=== PATIENT | male | born 1980 ===

== ENCOUNTER 2017-01-03 12:58 | Emergency (ER) | payer SELFPAY ==
[2017-01-03] MEDS ORDERED: Albuterol-Ipratrop 3 mg / 0.5 (3 ml) UD INH STA ×3 (13:27→16:08)
--- NOTE | 2017-01-03 13:51 | ED PDOC ---
HPI: SOB/CHF/COPD Time Seen by Provider: 01/03/17 13:21 Chief Complaint (Nursing): Shortness Of Breath Chief Complaint (Provider): Symptoms of Asthma Exacerbation History Per: Patient History/Exam Limitations: no limitations Onset/Duration Of Symptoms: Days (since yesterday) Current Symptoms Are (Timing): Still Present Initiating Event: Upper Respiratory Illness Context: Asthma exacerbation Current Respiratory Medications: Albuterol (provides minimal relief) Severity: Moderate Associated Symptoms: Fever (tactile, yesterday), Other (wheeze, cough) Additional Complaint(s): Cristian Harris is a 36 year old male, with a past medical history of mild, persistent asthma, who presents to the emergency department today with symptoms of asthma exacerbation, that the patient has been experiencing since yesterday. Associated wheeze, cough, and shortness of breath are currently present. Patient reports that he had a tactile fever yesterday, which has since then improved. He is using Albuterol at home; however, it has only provided mild relief, prompting his visit to the ED. Denies prior hospitalizations for asthma. PMD: Aida Barrientos Past Medical History Reviewed: Historical Data, Nursing Documentation, Vital Signs Vital Signs: Last Vital Signs Temp 98.7 F 01/03/17 13:04 Pulse 130 H 01/03/17 13:04 Resp 22 01/03/17 13:04 BP 114/71 01/03/17 13:04 Pulse Ox 94 L 01/03/17 14:02 - Medical History PMH: Asthma - Surgical History Surgical History: No Surg Hx - Family History Family History: States: No Known Family Hx - Social History Current smoker - smoking cessation education provided: No Ex-Smoker (has not smoked in the last 12 months): No - Allergies Allergies/Adverse Reactions: Allergies Allergy/AdvReac Type Severity Reaction Status Date / Time No Known Allergies Allergy Verified 01/03/17 13:04 Review of Systems ROS Statement: Except As Marked, All Systems Reviewed And Found Negative Constitutional: Positive for: Fever (tactile, yesterday) Respiratory: Positive for: Cough, Shortness of Breath, Wheezing Physical Exam - Reviewed Nursing Documentation Reviewed: Yes Vital Signs Reviewed: Yes - Physical Exam Appears: Positive for: Non-toxic, No Acute Distress Head Exam: Positive for: ATRAUMATIC, NORMOCEPHALIC Skin: Positive for: Normal Color, Warm, Dry Eye Exam: Positive for: Normal appearance, EOMI ENT: Positive for: Normal ENT Inspection. Negative for: Pharyngeal Erythema, Tonsillar Exudate, Tonsillar Swelling Neck: Positive for: Normal, Painless ROM Cardiovascular/Chest: Positive for: Regular Rate, Rhythm. Negative for: Murmur Respiratory: Positive for: Wheezing (b/l). Negative for: Normal Breath Sounds, Respiratory Distress Gastrointestinal/Abdominal: Positive for: Normal Exam, Soft. Negative for: Tenderness Back: Positive for: Normal Inspection. Negative for: L CVA Tenderness, R CVA Tenderness, Vertebral Tenderness Extremity: Positive for: Normal ROM. Negative for: Tenderness, Swelling (lower extremity edema) Neurologic/Psych: Positive for: Alert, Oriented - ECG ECG Rhythm: Positive for: Normal QRS, Sinus Tachycardia. Negative for: ST/T Changes Rate: 125 O2 Sat by Pulse Oximetry: 94 (RA) Pulse Ox Interpretation: Normal - Radiology X-Ray: Interpreted by Me, Viewed By Me, Read By Radiologist X-Ray Interpretation: No Acute Disease Medical Decision Making Medical Decision Makin:21 Initial Impression: Asthma exacerbation Initial Plan: * Chest X-Ray * EKG * Albuterol/Ipratropium 3 ml INH * predniSONE 60 mg PO * Peak Flow Pre/Post Respiratory Treatment * Influenza A/B * Reevaluation 13:42 EKG read at a rate of 125 w/ Sinus Tachycardia, No ST/T Changes, Normal QRS. 14:06 Chest X-Ray Results FINDINGS: LUNGS: No active pulmonary disease. PLEURA: No significant pleural effusion identified. No pneumothorax apparent. CARDIOVASCULAR: Normal. OSSEOUS STRUCTURES: No significant abnormalities. VISUALIZED UPPER ABDOMEN: Normal. OTHER FINDINGS: None. IMPRESSION: No active disease. Scribe Attestation: Documented by Real Romero, acting as a scribe for David Hayden III, MD. Provider Scribe Attestation: All medical record entries made by the Scribe were at my direction and personally dictated by me. I have reviewed the chart and agree that the record accurately reflects my personal performance of the history, physical exam, medical decision making, and the department course for this patient. I have also personally directed, reviewed, and agree with the discharge instructions and disposition.
--- NOTE | 2017-01-03 14:08 | RAD ---
HISTORY: SOB COMPARISON: No prior. TECHNIQUE: Chest PA and lateral FINDINGS: LUNGS: No active pulmonary disease. PLEURA: No significant pleural effusion identified. No pneumothorax apparent. CARDIOVASCULAR: Normal. OSSEOUS STRUCTURES: No significant abnormalities. VISUALIZED UPPER ABDOMEN: Normal. OTHER FINDINGS: None. IMPRESSION: No active disease.
[2017-01-03 15:27] LABS: BASO % 0.4 % (0.0-2.0); EOS # 0.2 K/uL (0.0-0.7); EOS % 2.3 % (0.0-4.0); HEMATOCRIT 39.5 % (35.0-51.0); LYMPH # 1.4 K/uL (1.0-4.3); LYMPH % 16.5 % (20.0-40.0); MEAN CELL VOLUME 81.2 fl (80.0-94.0); MEAN CORPUSCULAR HEMOGLOBIN 26.7 pg (27.0-31.0); MEAN CORPUSCULAR HGB CONC 32.8 g/dL (33.0-37.0); MEAN PLATELET VOLUME 8.1 fl (7.2-11.7); MONO # 0.7 K/uL (0.0-0.8); MONO % 8.3 % (0.0-10.0); NEUT # 6.1 K/uL (1.8-7.0); NEUT % 72.5 % (50.0-75.0); RED CELL DISTRIBUTION WIDTH 14.1 % (11.5-14.5); WHITE BLOOD COUNT 8.4 K/uL (4.8-10.8)
[2017-01-03 15:41] LABS: ALKALINE PHOSPHATASE 77 U/L (38-126); ALT/SGPT 32 U/L (21-72); AST/SGOT 22 U/L (17-59); BILIRUBIN,TOTAL 0.2 mg/dl (0.2-1.3); BLOOD UREA NITROGEN 12 mg/dl (9-20); CALCIUM 8.9 mg/dL (8.4-10.2); CARBON DIOXIDE 26 mmol/L (22-30); CHLORIDE 105 mmol/L (98-107); GFR AFRICAN-AMERICAN > 60; GLUCOSE,RANDOM 133 mg/dL (75-110); POTASSIUM 3.9 MMOL/L (3.6-5.0); SODIUM 141 mmol/l (132-148); TOTAL PROTEIN 7.4 G/DL (6.3-8.2)
[2017-01-03] MEDS ORDERED: Magnesium Sulfate 2 gm/50 ml 2 GM/50 ML BAG IVPB ONE (16:09)
[2017-01-03] MEDS ORDERED: Albuterol-Ipratrop 3 mg / 0.5 (3 ml) UD ONE (16:29)
--- NOTE | 2017-01-03 16:32 | ED PDOC ---
- Laboratory Results Result Diagrams: 01/03/17 15:21 01/03/17 15:21 - ECG O2 Sat by Pulse Oximetry: 94 (RA) Pulse Ox Interpretation: Normal Medical Decision Making Medical Decision Making: Time: 1500 --Patient is pending reassessment of medications, reevaluation, and final ER disposition. 5p Reeval pt feeling a lot better, maintiaining good O2 sat and no wheeze on reeval. Ate lunch and eager to go home. Scribe Attestation: Documented by Juanis Rossi, acting as a scribe for Skye Gupta MD. Provider Scribe Attestation: All medical record entries made by the Scribe were at my direction and personally dictated by me. I have reviewed the chart and agree that the record accurately reflects my personal performance of the history, physical exam, medical decision making, and the department course for this patient. I have also personally directed, reviewed, and agree with the discharge instructions and disposition. Disposition - Clinical Impression Clinical Impression: Asthma exacerbation - POA Present On Arrival: None - Disposition Referrals: Aida Barrientos MD [Medical Doctor] - 01/04/17 Disposition: Routine/Home Disposition Time: 17:00 Condition: IMPROVED Prescriptions: Albuterol 0.083% [Albuterol Sulfate 3 Ml] 3 ml IH Q4H PRN #50 neb PRN Reason: ASTHMA Prednisone 50 mg PO DAILY #4 tablet Instructions: Asthma (ED)
[2017-01-03 17:54] VITALS: BP 122/67; PULSE 102; RESP 19; TEMP 98.2; O2SAT 97
--- NOTE | 2017-01-04 08:55 | CARD ---
APPROVED REPORT EKG Measurement Heart [id number] <Conclusion> Sinus tachycardia Otherwise normal ECG
== END 2017-01-03 17:55 | disposition home or self-care (01) ==
LOC: H.ER 12:58
DX: J45.901 Unspecified asthma with (acute) exacerbation (principal); R06.02 Shortness of breath

== ENCOUNTER 2017-02-01 11:13 | Inpatient (IN) | payer BC ==
[2017-02-01] MEDS ORDERED: Albuterol-Ipratrop 3 mg / 0.5 (3 ml) UD INH STA ×3 (12:23→12:24)
[2017-02-01] MEDS ORDERED: Albuterol-Ipratrop 3 mg / 0.5 (3 ml) UD ONE (12:24)
[2017-02-01] MEDS ORDERED: Sodium Chloride 0.9% 1,000 ML IV STA (14:23)
--- NOTE | 2017-02-01 14:27 | ED PDOC ---
HPI: Asthma Time Seen by Provider: 02/01/17 14:24 Chief Complaint (Nursing): Respiratory Distress Chief Complaint (Provider): asthma History Per: Patient History/Exam Limitations: no limitations Associated Symptoms: denies: Dyspnea, Cough, Sputum Production, Hemoptysis, Fever, Hives, Itching, Chest Pain, URI Additional Complaint(s): 36yo M in ED for eval for difficulty with breathing x1 days states she has been seen in Ed previously for asthma attack, states he has been taking his albuterol but not effective. admits to chest tightness and back pain. denies recent travel, recent surgery recent no blood disorders. - Asthma History Rescue Medications: Short-acting Agonists Control Medications: None Past Medical History Reviewed: Historical Data, Nursing Documentation, Vital Signs Vital Signs: Last Vital Signs Temp 98.7 F 02/01/17 11:19 Pulse 132 H 02/01/17 11:19 Resp 14 02/01/17 11:31 BP Pulse Ox 96 02/01/17 13:14 - Medical History PMH: Asthma - Family History Family History: States: No Known Family Hx - Home Medications Home Medications: Ambulatory Orders Medication Instructions Recorded Albuterol 0.083% [Albuterol 3 ml IH Q4H PRN #50 neb 01/03/17 Sulfate 3 Ml] - Allergies Allergies/Adverse Reactions: Allergies Allergy/AdvReac Type Severity Reaction Status Date / Time No Known Allergies Allergy Verified 02/01/17 15:32 Review of Systems ROS Statement: Except As Marked, All Systems Reviewed And Found Negative Cardiovascular: Negative for: Chest Pain, Palpitations Respiratory: Positive for: Shortness of Breath, SOB with Exertion, Wheezing Physical Exam - Reviewed Nursing Documentation Reviewed: Yes Vital Signs Reviewed: Yes - Physical Exam Appears: Positive for: Non-toxic, No Acute Distress, Uncomfortable Head Exam: Positive for: ATRAUMATIC, NORMAL INSPECTION, NORMOCEPHALIC Skin: Positive for: Normal Color, Warm, DRY Cardiovascular/Chest: Positive for: Regular Rate, Rhythm, Chest Non Tender, Tachycardia. Negative for: Bradycardia Respiratory: Positive for: CNT, Normal Breath Sounds Back: Positive for: Normal Inspection Extremity: Positive for: Normal ROM Neurologic/Psych: Positive for: Alert, Oriented - Laboratory Results Result Diagrams: 02/01/17 14:30 02/01/17 14:30 - ECG O2 Sat by Pulse Oximetry: 96 - Progress ED Course And Treament: Pt given duonebb x 3 however pt still is complaining of SOB-will need Chest xray , D-dimer, cbc/cmp/EKG, prednisone 60mg HR still elevated placed on 1 liter of NS. Medical Decision Making Medical Decision Making: Pt HR not improved > 120bpm, Pt still admits to difficulty with breathing, though able to speak in full sentences and no wheezing on PE. Pt admits to back pain made worse with breathing. EKG shows sinus tachycardia. Pt not improved after 60mg of PO prednisone will get Mag 2mg IV and NS. pt will need admission for asthma exacerbation under MD Sarina. Disposition - Clinical Impression Clinical Impression: Asthma exacerbation - Patient ED Disposition Is Patient to be Admitted: Yes - Disposition Disposition Time: 16:35 Condition: FAIR - Pt Status Changed To: Hospital Disposition Of: Observation - POA Present On Arrival: None
[2017-02-01 14:51] LABS: BASO % 0.3 % (0.0-2.0); EOS # 0.1 K/uL (0.0-0.7); EOS % 0.8 % (0.0-4.0); HEMATOCRIT 41.6 % (35.0-51.0); LYMPH # 0.8 K/uL (1.0-4.3); LYMPH % 6.3 % (20.0-40.0); MEAN CELL VOLUME 80.6 fl (80.0-94.0); MEAN CORPUSCULAR HEMOGLOBIN 26.6 pg (27.0-31.0); MEAN CORPUSCULAR HGB CONC 33.1 g/dL (33.0-37.0); MEAN PLATELET VOLUME 8.3 fl (7.2-11.7); MONO # 0.7 K/uL (0.0-0.8); MONO % 5.6 % (0.0-10.0); NEUT # 10.6 K/uL (1.8-7.0); PLATELET COUNT 238 K/uL (130-400); RED CELL DISTRIBUTION WIDTH 14.3 % (11.5-14.5); WHITE BLOOD COUNT 12.1 K/uL (4.8-10.8)
[2017-02-01 15:02] LABS: ALB/GLOB RATIO 1.2 (1.0-2.1); ALKALINE PHOSPHATASE 75 U/L (38-126); ALT/SGPT 33 U/L (21-72); AST/SGOT 26 U/L (17-59); BILIRUBIN,TOTAL 0.7 mg/dl (0.2-1.3); BLOOD UREA NITROGEN 14 mg/dl (9-20); CARBON DIOXIDE 25 mmol/L (22-30); CHLORIDE 102 mmol/L (98-107); GFR AFRICAN-AMERICAN > 60; GLUCOSE,RANDOM 102 mg/dL (75-110); POTASSIUM 3.8 MMOL/L (3.6-5.0); SODIUM 141 mmol/l (132-148); TOTAL PROTEIN 8.1 G/DL (6.3-8.2)
--- NOTE | 2017-02-01 15:11 | RAD ---
HISTORY: cough COMPARISON: Comparison chest 01/03/2017 TECHNIQUE: Chest PA and lateral FINDINGS: LUNGS: No active pulmonary disease. PLEURA: No significant pleural effusion identified. No pneumothorax apparent. CARDIOVASCULAR: Normal. OSSEOUS STRUCTURES: Very minor multilevel degenerative spondylosis of the thoracic spine VISUALIZED UPPER ABDOMEN: Normal. OTHER FINDINGS: None. IMPRESSION: No acute cardiopulmonary disease.
[2017-02-01 15:17] LABS: PARTIAL THROMBOPLASTIN TIME 29.6 Seconds (25.6-37.1)
[2017-02-01] MEDS ORDERED: Iodixanol 320 MG/ML 100 ML BOTTLE IV ONE (15:17)
[2017-02-01 15:30] LABS: NEUTROPHIL 86 % (42-75); REACTIVE LYMPHOCYTES 1 % (0-0); TOTAL CELLS COUNTED 100
--- NOTE | 2017-02-01 16:10 | CT ---
PROCEDURE: CT Chest with contrast (Pulmonary Angiogram) HISTORY: SOB with elevated HR COMPARISON: None available. TECHNIQUE: Axial computed tomography images were obtained of the chest in the pulmonary arterial phase of enhancement. Coronal and sagittal reformatted images were created and reviewed. Intravenous contrast dose: 95 cc Visipaque 320 contrast material. Radiation dose: Total exam DLP = mGy-cm. This CT exam was performed using one or more of the following dose reduction techniques: Automated exposure control, adjustment of the mA and/or kV according to patient size, and/or use of iterative reconstruction technique. FINDINGS: PULMONARY ARTERIES: The visualized pulmonary trunk, right and left main, lobar, segmental and proximal subsegmental branches of the pulmonary arteries appear well opacified with no definitive filling defects seen to suggest acute pulmonary embolus. Pulmonary trunk measures approximately 2.4 cm. AORTA: No evidence of thoracic aortic aneurysm. Ascending thoracic aorta measures approximately 2.586 cm and descending thoracic aorta measures approximately 2.13 cm. No significant atherosclerotic plaque. LUNGS: Unremarkable. No nodule, mass or pulmonary consolidation. PLEURAL SPACES: Unremarkable. No effusion or pneuomothorax. HEART: Heart size is within range of normal. No evidence of significant pericardial effusion. LYMPH NODES: Multiple small nonspecific mediastinal lymph nodes are present on. In addition, there are few small to medium size hilar lymph nodes present of the largest on the right side measuring approximately 17.2 mm and another measuring approximately 16.2 mm. Several left-sided hilar lymph nodes are present as well, the largest measuring approximately 13.8 mm and another measuring 12.6 mm. BONES, CHEST WALL: Small to medium-sized hiatal hernia with mild wall thickening of the distal esophagus that could be due to protrusion of gastric mucosa. Possibility of esophagitis or other intrinsic/ invasive wall lesion cannot be excluded. Clinical correlation recommended. Minimal multilevel degenerative spondylosis of the thoracic spine OTHER FINDINGS: Visualized upper abdominal structures appear grossly unremarkable. IMPRESSION: No evidence of acute central pulmonary embolus. Multiple small nonspecific mediastinal lymph nodes. There are several small to medium sized nonspecific bilateral hilar lymph nodes as above.
[2017-02-01] MEDS ORDERED: Albuterol 0.083% Inhal Sol (2.5 mg/3 mL) UD INH STA (16:27)
[2017-02-01] MEDS ORDERED: Magnesium Sulfate 2 gm/50 ml 2 GM/50 ML BAG IV STA (16:27)
[2017-02-01] MEDS ORDERED: Magnesium Sulfate 2 gm/50 ml 2 GM/50 ML BAG ONE (16:34)
[2017-02-01] MEDS ORDERED: Albuterol 0.083% Inhal Sol (2.5 mg/3 mL) UD ONE (16:34)
[2017-02-01] MEDS ORDERED: Albuterol 0.083% Inhal Sol (2.5 mg/3 mL) UD INH PRN (20:31)
[2017-02-01] MEDS ORDERED: methylPREDNISolone 125 MG in Sodium Chloride 0.9% 50 ML IVPB STA (20:32)
[2017-02-01] MEDS ORDERED: Sodium Chloride 3% for Inhalation 4 ML VIAL.NEB IH PRN (20:37)
[2017-02-01] MEDS ORDERED: Enoxaparin 100 mg Syringe SC STA (20:46)
[2017-02-01 21:31] LABS: BASO % 0.2 % (0.0-2.0); HEMATOCRIT 40.9 % (35.0-51.0); LYMPH % 7.6 % (20.0-40.0); MEAN CELL VOLUME 81.2 fl (80.0-94.0); MEAN CORPUSCULAR HEMOGLOBIN 26.2 pg (27.0-31.0); MEAN CORPUSCULAR HGB CONC 32.3 g/dL (33.0-37.0); MEAN PLATELET VOLUME 8.5 fl (7.2-11.7); MONO # 0.2 K/uL (0.0-0.8); MONO % 1.8 % (0.0-10.0); NEUT % 90.4 % (50.0-75.0); PLATELET COUNT 233 K/uL (130-400); RED CELL DISTRIBUTION WIDTH 13.9 % (11.5-14.5); WHITE BLOOD COUNT 13.3 K/uL (4.8-10.8)
[2017-02-01 21:33] LABS: ALB/GLOB RATIO 1.2 (1.0-2.1); ALKALINE PHOSPHATASE 68 U/L (38-126); ALT/SGPT 24 U/L (21-72); AST/SGOT 25 U/L (17-59); BILIRUBIN,TOTAL 0.6 mg/dl (0.2-1.3); BLOOD UREA NITROGEN 13 mg/dl (9-20); CALCIUM 9.2 mg/dL (8.4-10.2); CARBON DIOXIDE 23 mmol/L (22-30); CHLORIDE 105 mmol/L (98-107); CHOLESTEROL 200 mg/dL (0-199); GFR AFRICAN-AMERICAN > 60; GLUCOSE,RANDOM 138 mg/dL (75-110); POTASSIUM 4.4 MMOL/L (3.6-5.0); SODIUM 140 mmol/l (132-148); TOTAL PROTEIN 8.3 G/DL (6.3-8.2)
[2017-02-01 21:39] LABS: PARTIAL THROMBOPLASTIN TIME 30.8 Seconds (25.6-37.1)
[2017-02-01 22:59] LABS: NEUTROPHIL 88 % (42-75); TOTAL CELLS COUNTED 100
[2017-02-02] MEDS ORDERED: Albuterol 0.083% Inhal Sol (2.5 mg/3 mL) UD INH PRN (00:24)
[2017-02-02] MEDS: Albuterol 0.083% Inhal Sol (2.5 mg/3 mL) UD INH SCH ×4 (01:09→20:21)
[2017-02-02] MEDS: methylPREDNISolone 40 MG in Sodium Chloride 0.9% 50 ML IVPB SCH ×3 (03:26→21:04)
[2017-02-02] MEDS: Pantoprazole 40 mg EC Tab PO SCH (08:52)
[2017-02-02] MEDS ORDERED: Pneumococcal 23-Valent Vaccine IM ONE (09:00)
[2017-02-02 10:03] LABS: RBC URINE < 1 /hpf (0-3); URINE BILIRUBIN NEGATIVE (NEGATIVE); URINE BLOOD NEGATIVE (NEGATIVE); URINE COLOR YELLOW (YELLOW); URINE GLUCOSE (UA) >=500 mg/dL (Normal); URINE KETONE NEGATIVE (NEGATIVE); URINE LEUKOCYTE ESTERASE NEG Leu/uL (Negative); URINE PROTEIN NEGATIVE (NEGATIVE); URINE UROBILINOGEN 0.2-1.0 mg/dL (0.2-1.0)
[2017-02-02] MEDS: Fluticasone-Salmeterol 250-50mcg Diskus IH SCH ×2 (11:51→22:04)
--- NOTE | 2017-02-02 15:11 | CP.PCM.HP ---
History of Present Illness - History of Present Illness History of Present Illness: CC: Respiratory Distress. 36 y/o M, [facility] onset day [employer], Pt using Albuterol inhaler with mild relief. Pt came c/o of moderate SOB associated, chest tightness type associated to wheezing, occasional cough, non productive, non bloody. Worsening symptoms: SOB with exertion and at rest back pain. Aggravated factor: Increased symptoms with exercise. Pt denied: Fever, chills, n/v/d, abdominal pain, urinary symptoms, dizziness, CP, LOC, sick contact, recent travel. PMHx: Asthma, chronic back pain. CXR shows: No acute pulmonary disease. CT Chest shows: No PE, Multiple small lymph nodes. Present on Admission - Present on Admission Any Indicators Present on Admission: No Review of Systems - Constitutional Constitutional: Other (negative) - EENT Eyes: Other (negative) Ears: Other (negative) Nose/Mouth/Throat: Other (negative) - Cardiovascular Cardiovascular: Rapid Heart Rate - Respiratory Respiratory: Cough, Dyspnea, Dyspnea on Exertion, Wheezing - Gastrointestinal Gastrointestinal: Other (negative) - Genitourinary Genitourinary: Other (negative) - Musculoskeletal Musculoskeletal: Back Pain - Integumentary Integumentary: Other (negative) - Neurological Neurological: Other (negative) - Psychiatric Psychiatric: Other (negative) - Endocrine Endocrine: Other (negative) - Hematologic/Lymphatic Hematologic: Other (negative) Past Patient History - Infectious Disease Hx of Infectious Diseases: None - Past Medical History & Family History Past Medical History?: Yes Pertinent Family History: Unknown - Past Social History Smoking Status: Never Smoked Alcohol: None Drugs: Denies Home Situation {Lives}: Other - CARDIAC Hx Cardiac Disorders: No - PULMONARY Hx Respiratory Disorders: Yes Hx Asthma: Yes - NEUROLOGICAL Hx Neurological Disorder: No - HEENT Hx HEENT Problems: No - RENAL Hx Chronic Kidney Disease: No - ENDOCRINE/METABOLIC Hx Endocrine Disorders: No - HEMATOLOGICAL/ONCOLOGICAL Hx Blood Disorders: No - INTEGUMENTARY Hx Dermatological Problems: No - MUSCULOSKELETAL/RHEUMATOLOGICAL Hx Musculoskeletal Disorders: Yes Hx Back Pain: Yes (lower back pain for 3 years) Hx Falls: No - GASTROINTESTINAL Hx Gastrointestinal Disorders: No - GENITOURINARY/GYNECOLOGICAL Hx Genitourinary Disorders: No - PSYCHIATRIC Hx Psychophysiologic Disorder: No Hx Substance Use: Yes - SURGICAL HISTORY Hx Surgeries: No - ANESTHESIA Hx Anesthesia: Yes Hx Anesthesia Reactions: No Has any member of the family had a problem w/ anesthesia?: No Meds Allergies/Adverse Reactions: Allergies Allergy/AdvReac Type Severity Reaction Status Date / Time No Known Allergies Allergy Verified 02/01/17 15:32 Physical Exam - Constitutional Appears: No Acute Distress - Head Exam Head Exam: NORMAL INSPECTION, NORMOCEPHALIC - Eye Exam Eye Exam: PERRL - ENT Exam ENT Exam: Normal Oropharynx - Neck Exam Neck exam: Positive for: Normal Inspection - Respiratory Exam Respiratory Exam: Decreased Breath Sounds (at bases), Wheezes (b/l) - Cardiovascular Exam Cardiovascular Exam: REGULAR RHYTHM - GI/Abdominal Exam GI & Abdominal Exam: Normal Bowel Sounds, Soft - Extremities Exam Extremities exam: Positive for: normal inspection - Back Exam Back exam: NORMAL INSPECTION - Neurological Exam Neurological exam: Alert, Oriented x3 Additional comments: No motor sensory deficit. - Psychiatric Exam Psychiatric exam: Normal Mood - Skin Skin Exam: Normal Color, Warm Results - Vital Signs Recent Vital Signs: Last Vital Signs Temp 97.8 F 02/02/17 12:04 Pulse 98 H 02/02/17 12:04 Resp 18 02/02/17 12:04 BP 121/76 02/02/17 12:04 Pulse Ox 98 02/02/17 12:04 reviewed J.P. - Labs Result Diagrams: 02/01/17 21:11 02/01/17 21:11 Labs: reviewed J.P. - Imaging and Cardiology Chest x-ray Status: Report reviewed by me (Jim) CT scan - chest Status: Report reviewed by me (Jim) Assessment & Plan (1) Asthmatic bronchitis with exacerbation Status: Acute Priority: High - Assessment and Plan (Free Text) Plan: Taper Solumedrol, increase Advair to 500/50 , continue Albuterol , Singulair , Protonix rest of Tx. - Date & Time Date: 02/02/17 Time: 14:00
[2017-02-02 15:38] VITALS: RESP 20
--- NOTE | 2017-02-02 16:48 | CARD ---
APPROVED REPORT EKG Measurement Heart [id number] <Conclusion> Sinus tachycardia Otherwise normal ECG
[2017-02-03] MEDS: Albuterol 0.083% Inhal Sol (2.5 mg/3 mL) UD INH SCH ×3 (01:03→14:00)
[2017-02-03] MEDS: methylPREDNISolone 30 MG in Sodium Chloride 0.9% 50 ML IV SCH ×2 (04:22→09:19)
[2017-02-03 05:31] LABS: BLOOD UREA NITROGEN 19 mg/dl (9-20); CALCIUM 8.8 mg/dL (8.4-10.2); CARBON DIOXIDE 24 mmol/L (22-30); CHLORIDE 106 mmol/L (98-107); GFR AFRICAN-AMERICAN > 60; GLUCOSE,RANDOM 145 mg/dL (75-110); POTASSIUM 4.8 MMOL/L (3.6-5.0); SODIUM 141 mmol/l (132-148)
[2017-02-03 06:11] LABS: HEMATOCRIT 39.3 % (35.0-51.0); MEAN CORPUSCULAR HEMOGLOBIN 26.2 pg (27.0-31.0); MEAN CORPUSCULAR HGB CONC 32.3 g/dL (33.0-37.0); RED CELL DISTRIBUTION WIDTH 14.7 % (11.5-14.5)
[2017-02-03] MEDS: Pantoprazole 40 mg EC Tab PO SCH (08:50)
[2017-02-03] MEDS ORDERED: Fluticasone-Salmeterol 500-50mcg Diskus IH SCH (09:00)
--- NOTE | 2017-02-03 09:24 | PQF GENQUE ---
This form is a permanent part of the medical record 02/03/17 Dr Branch, Please clarify the type of asthma if known. Admitted with SOB, wheezing, chest tightness, back pain and cough. CXR no acute pulmonary disease. Treatment includes, nebulizers, solumedrol, singulair and advair diskus. Clarification of your documentation is requested to better reflect the severity of illness and intensity of treatment of your patient. PHYSICIAN'S RESPONSE Childhood Cough variant Exercise induced Late onset Mild intermittent Mild persistent Moderate persistent Severe persistent With bronchitis(please clarify acuity of bronchitis) With chronic lung disease (please document specific chronic lung disease) Other (please specify) Unable to determine Based on your medical judgment of the clinical indicators outlined above please clarify the following: [] Practitioner response [] If unable to determine, please check the box, sign and date. Present On Admission (POA) Indicator: [] Present at the time of admission [] Not present at the time of admission [] Clinically Undetermined In responding to this query, please exercise your independent professional judgment. The fact that a question is asked does not imply that any particular answer is desired or expected. Thank you for your clarification on this documentation. If you have any questions please call:extension [phone] Medical Records Dept. * Thank you, Tiffanie Brandon RN [facility]
[2017-02-03 12:33] VITALS: BP 110/60; PULSE 116; TEMP 97.8; O2SAT 94
--- NOTE | 2017-02-03 17:48 | CP.PCM.PN ---
Subjective - Date & Time of Evaluation Date of Evaluation: 02/03/17 Time of Evaluation: 11:35 - Subjective Subjective: F/U Bronchial Asthma Exacerbation. Pt awake, no A/D, no SOB, no chest congestion. Objective - Vital Signs/Intake and Output Vital Signs (last 24 hours): Temp Pulse Resp BP Pulse Ox 97.8 F 116 H 20 110/60 94 L 02/03/17 12:32 02/03/17 12:32 02/03/17 12:32 02/03/17 12:32 02/03/17 12:32 Intake and Output: 02/03/17 02/03/17 06:59 18:59 Intake Total 600 Balance 600 - Labs Labs: 02/03/17 04:10 02/03/17 04:10 PT 12.0 Seconds (9.8-13.1) 02/01/17 21:11 INR 1.1 (0.9-1.2) 02/01/17 21:11 APTT 30.8 Seconds (25.6-37.1) 02/01/17 21:11 - Constitutional Appears: No Acute Distress - Head Exam Head Exam: NORMAL INSPECTION - Eye Exam Eye Exam: PERRL - ENT Exam ENT Exam: Normal Oropharynx - Neck Exam Neck Exam: Normal Inspection - Respiratory Exam Respiratory Exam: NORMAL BREATHING PATTERN - Cardiovascular Exam Cardiovascular Exam: REGULAR RHYTHM - GI/Abdominal Exam GI & Abdominal Exam: Soft, Normal Bowel Sounds - Extremities Exam Extremities Exam: Normal Inspection - Back Exam Back Exam: NORMAL INSPECTION - Neurological Exam Neurological Exam: Alert, Oriented x3. absent: Motor Sensory Deficit - Psychiatric Exam Psychiatric exam: Normal Mood - Skin Skin Exam: Normal Color, Warm Assessment and Plan (1) Asthmatic bronchitis with exacerbation Status: Resolved - Assessment and Plan (Free Text) Plan: Pt improved and stable to be discharged, see instruction medication sheet, f/u with PMD in a week.
[2017-02-03] MEDS ORDERED: Enoxaparin 40 mg Syringe SC SCH (21:00)
== END 2017-02-03 14:20 | disposition home or self-care (01) | DRG 203 ==
LOC: H.ER 11:13 → H.EROBSV 16:32 → H.ERHOLD 16:45 → H.TEL 18:46 → OBSVTOIN 02-02 12:09 → H.TEL 02-02 12:14
PROVIDERS: ADMIT Internal Medicine Pulmonary Disease; ATTEND Internal Medicine Pulmonary Disease
PROC: 3E0234Z Introduction of Serum, Toxoid and Vaccine into Muscle, Percutaneous Approach (ICD-10-PCS; principal; 2017-02-02)
DX: J45.901 Unspecified asthma with (acute) exacerbation (principal); G89.29 Other chronic pain; M54.5 Low back pain; Z23 Encounter for immunization

== ENCOUNTER 2017-10-21 09:12 | Day surgery (SDC) | payer BC ==
[2017-10-21] MEDS ORDERED: Lactated Ringer's 1,000 ML IV ONE (09:53)
[2017-10-21] MEDS ORDERED: Propofol 10 mg/ml Inj (20 ML) ONE (11:14)
[2017-10-21 11:57] VITALS: TEMP 97.2
[2017-10-21 11:58] VITALS: BP 104/61; PULSE 69; RESP 20; O2SAT 98
== END 2017-10-21 12:02 | disposition home or self-care (01) ==
LOC: H.ENDO 09:12
PROVIDERS: ATTEND Internal Medicine Gastroenterology
DX: K21.9 Gastro-esophageal reflux disease without esophagitis (principal); J45.909 Unspecified asthma, uncomplicated; K20.9 Esophagitis, unspecified; K22.8 Other specified diseases of esophagus; K29.70 Gastritis, unspecified, without bleeding; I89.0 Lymphedema, not elsewhere classified; K44.9 Diaphragmatic hernia without obstruction or gangrene
CPT/HCPCS: 43239; 88305; J2704; J7120